=== PATIENT | female | born 1980 | race Caucasian/White ===

== ENCOUNTER → 2017-05-02 | Outpatient (CLI) | payer BC ==
[~2017-05-02] MED LIST: DHA PO; PRENATAL1 TA1 PO
== END ==
LOC: COL.VAS 12:48
DX: I49.3 Ventricular premature depolarization (principal); I36.1 Nonrheumatic tricuspid (valve) insufficiency

== ENCOUNTER 2017-11-21 18:45 | Inpatient (IN) | payer BC ==
[~2017-11-21] VITALS: Ht 170.2 cm; Wt 87.3 kg
[2017-11-21] VITALS (11 sets, daily range): BP systolic 120–150; BP diastolic 56–70; PULSE 88–122; TEMP 97.7–98.6
[~2017-11-21 18:45] MED LIST changes: +SYNTHROID0.125 MG/T PO
[2017-11-21 19:31] LABS: BASO % 0.3 % (0.0-2.0); EOS # 0.1 (0.0-0.7); EOS % 0.8 % (0-4.0); GRAN # 10.7 (1.4-6.5); GRAN % 78.6 % (42.2-75.2); HEMATOCRIT 38.9 % (37.0-47.0); HEMOGLOBIN 13.6 g/dl (12.5-16.0); LYMPH # 1.7 (1.2-3.4); LYMPH % 12.7 % (20.0-51.0); MEAN CELL VOLUME 95 fl (80.0-100.0); MEAN CORPUSCULAR HEMOGLOBIN 33 pg (27.0-31.0); MEAN CORPUSCULAR HGB CONC 35 g/dl (33.0-37.0); MEAN PLATELET VOLUME 10.2 fl (7.4-10.4); MONO % 7.1 % (1.7-9.3); PLATELET COUNT 231 K/mm3 (130-400); RED BLOOD COUNT 4.11 M/mm3 (4.10-5.30); REDCELL DISTRIBUTION WIDTH-CV 13.1 % (11.5-14.5)
[2017-11-22 03:46] VITALS: BP 117/73; PULSE 90; TEMP 98.1
[2017-11-22 08:59] VITALS: BP 115/70; PULSE 100; TEMP 98.2
[2017-11-22] MEDS ORDERED: MOTRIN 600600 MG/TAB PO (11:21)
[2017-11-22] MEDS ORDERED: PERCOCET 325 MG1 TA2 PO (11:22)
[2017-11-22 15:48] VITALS: BP 128/72; PULSE 83; TEMP 97.7
[2017-11-22 21:20] VITALS: BP 117/64; PULSE 79; TEMP 97.1
[2017-11-23 08:16] VITALS: BP 127/72; PULSE 85
== END 2017-11-23 14:55 | disposition home or self-care (01) | DRG 775 ==
LOC: LDR 18:45 → OB 23:07 → LDR 12-03 06:34
PROVIDERS: Obstetrics & Gynecology
PROC: 10E0XZZ Delivery of Products of Conception, External Approach (ICD-10-PCS; principal; 2017-11-21)
PROC: 0KQM0ZZ Repair Perineum Muscle, Open Approach (ICD-10-PCS; 2017-11-21)
DX: O70.1 Second degree perineal laceration during delivery (principal); Z37.0 Single live birth; Z3A.39 39 weeks gestation of pregnancy; O69.81X0 Labor and delivery complicated by cord around neck, without compression, not applicable or unspecified
CPT/HCPCS: J2590

== ENCOUNTER → 2021-12-16 | Outpatient (CLI) | payer OTHER ==
[~2021-12-16] MED LIST changes: +MOTRIN 600600 MG/TAB PO; +PERCOCET 325 MG1 TA2 PO
== END ==
LOC: MC.RAD 12-07 11:15
DX: Z12.31 Encounter for screening mammogram for malignant neoplasm of breast (principal)

== ENCOUNTER → 2023-05-09 | Outpatient (CLI) | payer OTHER | LOC: CANSCHCLI → MC.RAD 10:55 | DX: Z12.31 Encounter for screening mammogram for malignant neoplasm of breast (principal) ==

== ENCOUNTER → 2024-05-12 | Outpatient (CLI) | payer OTHER | LOC: MC.RAD 09:11 | DX: Z12.31 Encounter for screening mammogram for malignant neoplasm of breast (principal) ==